=== PATIENT | female | born 1965 | race Hispanic/Latino ===

== ENCOUNTER 2025-01-16 21:23 | Emergency (ER) | payer BC ==
[~2025-01-16] VITALS: Ht 154.9 cm; Wt 73.9 kg
--- NOTE | 2025-01-16 21:52 | ERN ---
ED Note History of Present Illness Stated Complaint: C/O ABD PAIN WITH BLACK STOOL Chief Complaint: Tarry Stool Time Seen by MD: 21:41 Dictation: This is a 59-year-old female who presented to the emergency room with complaints of black tarry stools associated with the abdominal pain. He also reports that she has been feeling extremely weak. The abdominal pain started a couple of days ago and she noticed the black tarry stools today. She had a similar episode of melena 12 or 13 years ago at which time eventually developed hematemesis and she was admitted to [facility] at the time. She was told she had a peptic ulcer disease. Her father from perforated peptic ulcer disease Temperature 98.3 pulse 53 respirations 20 blood pressure 164/84 with a pulse oximetry of 99% on room air She denied any NSAID use or OTC Goody powder RBC powder. She also denied any regular alcohol intake. Allergies: Coded Allergies: No Known Drug Allergies (Unverified Allergy, Unknown, 01/16/25) Past Medical History Past Medical History: No Pertinent History Surgical History: Appendectomy, Hysterectomy Family History: Negative History: Not Applicable RN Note Reviewed/Agreed w/PFSH: Yes Review of System Dictation Constitutional: Negative for fever,chills, and weight loss Eyes: Negative for injury, pain,redness, and discharge ENT: Negative for injury,pain or swelling Cardiovascular: Negative for chest pain, palpitations, and edema Respiratory: Negative for shortness of breath, cough, and wheezing, Abdomen/GI: Positive for abdominal pain and black tarry stools, nausea, vomiting, denied diarrhea, and constipation Back: Negative for injury and pain : Negative for injury, bleeding and discharge MS/Extremity: Negative for injury and deformity Skin: Negative for rash, and discoloration Neuro: Negative for headache, weakness, numbness, tingling, and seizure Psych: Negative for suicide ideation, homicidal ideation, and hallucinations Initial Vital Sign VS Vital Signs Date Time Temp Pulse Resp B/P (MAP) Pulse Ox O2 Delivery O2 Flow Rate FiO2 01/16/25 21:26 98.2 53 20 164/84 99 Room Air 01/16/25 22:24 0 21 Physical Exam Dictation General: awake, alert, NAD overweight female Head/Face: Normocephalic, atraumatic Eyes: PERRL, EOMI, vision at baseline ENT: oral cavity clear, TMs clear, no signs of infection Neck: Trachea midline, supple, no nuchal rigidity Cardiovascular: RRR, normal S1/S2, No MRGs, no JVD Respiratory: CTAB, no respiratory distress, No rales or wheezes Abdomen: Soft, non-tender, non-distended, normal bowel sounds, no guarding or rebound. Skin: Warm, dry, normal turgor, no rash MS/Extremity: Pulses equal, no cyanosis, neurovascular intact, FROM Neuro: COAx4, GCS 15, strength 5/5, CN 2-12 intact, normal cerebellar exam, normal gait, Psych: Normal behavior, mood, and affect normal Extremities-trace edema without any palpable cords, Homans sign is negative Results (Laboratory/Radiology) Laboratory/Radiology Laboratory Tests Test 01/16/25 22:10 01/16/25 22:18 Urine Color COLORLESS (YELLOW) Urine Appearance CLEAR (CLEAR) Urine pH 7.0 (5.0-8.0) Urine Specific [place] 1.004 (1.001-1.031) Urine Protein NEGATIVE mg/dL (NEGATIVE) Urine Glucose (UA) NEGATIVE mg/dL (NEGATIVE) Urine Ketones NEGATIVE mg/dL (NEGATIVE) Urine Occult Blood NEGATIVE (NEGATIVE) Urine Nitrate NEGATIVE (NEGATIVE) Urine Bilirubin NEGATIVE mg/dL (NEGATIVE) Urine Urobilinogen 0.2 mg/dL (0.2-1.0) Urine Leukocyte Esterase NEGATIVE [place]/uL Stool Occult Blood NEGATIVE (NEGATIVE) White Blood Count 5.9 K/uL (4.8-10.8) Red Blood Count 4.97 MIL/uL (4.00-5.50) Hemoglobin 13.9 g/dL (12.0-16.0) Hematocrit 42.1 % (36-48) Mean Corpuscular Volume 84.7 fL (79-99) Mean Corpuscular Hemoglobin 28.0 pg (27.0-33.0) Mean Corpuscular Hemoglobin Concent 33.0 g/dL (32.0-36.0) Red Cell Distribution Width 14.2 % (11.0-15.5) Platelet Count 259 K/uL (130-400) Mean Platelet Volume 9.9 fL (7.5-10.5) Immature Granulocyte % (Auto) 0.3 % (0-1) Neutrophils (%) (Auto) 46.0 % (40.0-77.0) Lymphocytes (%) (Auto) 40.1 % (21.0-51.0) Monocytes (%) (Auto) 8.2 % (3.0-13.0) Eosinophils (%) (Auto) 4.9 % (0.0-8.0) Basophils (%) (Auto) 0.5 % (0.0-5.0) Neutrophils # (Auto) 2.7 K/uL (1.8-7.7) Lymphocytes # (Auto) 2.4 K/uL (1.0-4.8) Monocytes # (Auto) 0.5 K/uL (0.1-1.0) Eosinophils # (Auto) 0.29 K/uL (0.00-0.70) Basophils # (Auto) 0.03 K/uL (0.00-0.20) Absolute Immature Granulocyte (auto 0.02 K/uL (0-1) Nucleated Red Blood Cells 0.0 % (0.0-0.19) Sodium Level 137 mmol/L (136-145) Potassium Level 3.9 mmol/L (3.5-5.1) Chloride Level 103 mmol/L (101-111) Carbon Dioxide Level 28 mmol/L (21-32) Blood Urea Nitrogen 13 mg/dL (7-18) Creatinine 0.8 mg/dL (0.5-1.0) Glomerular Filtration Rate Calc 84 mL/min (>90) Random Glucose 100 mg/dL (70-105) Total Calcium 8.8 mg/dL (8.5-10.1) Labs Reviewed?: Yes ED Course ED Course Orders Procedure Category Date Status Time Cbc With Differential LAB 01/16/25 Complete 21:49 Type And Screen BBK 01/16/25 In Process 21:49 Urinalysis Profile LAB 01/16/25 Complete 21:49 Occult Blood Stool LAB 01/16/25 Complete Single Only 21:49 12 Lead Ekg Tracing- EKG 01/16/25 Logged Technical 21:49 0.9%Nacl 1000ml (Ns PHA 01/16/25 In Process 1000ml) 22:00 Morphine 4mg Syg PHA 01/16/25 Complete (Morphine 4mg Syg) 22:00 Ondansetron 4mg Inj PHA 01/16/25 Complete (Zofran 4mg Inj) 22:00 Pantoprazole 40mg Inj PHA 01/16/25 Complete (Protonix 40mg Inj 22:00 Basic Metabolic Panel LAB 01/16/25 Complete 21:49 Current Medications Medications (Trade) Dose Ordered Sig/Pati Route PRN Reason Start Time Stop Time Status Last Admin Dose Admin Morphine Sulfate (morPHINE 4MG SYG) 4 mg ONCE ONCE IVP 01/16/25 22:00 01/16/25 22:01 DC 01/16/25 22:34 Ondansetron HCl (zoFRAN 4MG INJ) 4 mg ONCE ONCE IVP 01/16/25 22:00 01/16/25 22:01 DC 01/16/25 22:34 Pantoprazole Sodium (PROTonix 40MG INJ) 80 mg ONCE ONCE IVP 01/16/25 22:00 01/16/25 22:01 DC 01/16/25 22:34 Sodium Chloride 1,000 ml @ 125 mls/hr ONCE ONCE IV 01/16/25 22:00 01/17/25 05:59 01/16/25 22:34 Vital Signs Date Time Temp Pulse Resp B/P (MAP) Pulse Ox O2 Delivery O2 Flow Rate FiO2 01/16/25 22:24 97.9 59 18 144/78 98 Room Air* 0 21 01/16/25 21:26 98.2 53 20 164/84 99 Room Air We will perform diagnostic labs, and administer medications according to the patient's complaint. Once the results are available, will review and personally interpreted the labs to rule out any acute life-threatening emergency the trach require immediate intervention and treatment. I will then re-evaluate the patient after treatment and diagnostic exams have return to determine whether the patient requires any further testing, can safely be discharged home or need further admission to hospital for additional treatment and evaluation. Labs reviewed CBC is with a normal limits with a hemoglobin of 13.9. Urinalysis is unremarkable stool occult is negative. BNP 7 is also with a normal limits. I updated the patient on all the normal labs with stable hemoglobin and negative stool occult and the crampy abdominal pain lightly is related to constipation and at this time it does not appear to be an active GI bleed. She verbalized full understanding and she will follow up with her primary care physician. She stated that she already has laxatives at home Medical Decision Making MDM Differential diagnosis: GI bleed, constipation, colitis, gastritis, peptic ulcer disease Rationale: Tests considered and ordered secondary to shared decision making include: Previous outside records reviewed: Old ER visits. Risk of complication and/or morbidity or mortality of patient management: None Medications-Per medication reconciliation Need for hospitalization: Patient does not meet criteria for hospitalization. Need for emergency major/minor surgery: No There are no social concerns with this patient. Prescription drug management Prescriptions will include symptomatic care Patient's prior external medical records from other ER visits were reviewed by me as indicated. Prior testing and results from previous visits were reviewed. Prior tests were taken into account with medical decision making and resource u tilization, independent historian/historians were used to obtain complete medical history. I independently interpreted the test that were performed, results were reviewed by me and considered findings on radiology if ordered. Medical management and examination interpretation discussions were had by me with other qualified healthcare professionals as indicated for the patient's ca re. Problem List Problem List: (1) Abdominal pain (2) Constipation DX & DISP Disposition: Discharge Departure Impression: Primary Impression: Abdominal pain Additional Impression: Constipation Condition: Stable Additional Instructions: Patient and the caregiver have been informed of all the diagnostic tests and the imaging conducted during the today's visit to the emergency room and has verbalized understanding of the results I have personally reviewed and interpreted all diagnostic exams performed here in the ER today as well as the vital signs documented by the nursing staff. The patient is now being discharged to home and should follow up with the primary care physician or the specialist as directed by the ER staff. Follow-up with primary care provider in 1 to 2 days. Take medications as directed here in the emergency room. Okay to continue home medications unless otherwise discussed during your visit in the emergency room today. Return to your nearest emergency room if symptoms worsen or if there is no improvement. Call 911 if you need immediate assistance. Take Tylenol or Motrin [id number] as needed and if no contraindications are present. Increase oral hydration. A wound culture or urine culture was ordered here in the emergency room department please follow-up with primary care provider and advise them to get repeat ports from our facility. If you had any Jose G wrap/splints that were applied here, please do not remove them until you see your primary care or specialty. If abdominal pain persists patient to return the ER and additional imaging studies we will be pursued Referrals: SELF,REFERRAL (PCP) THOMAS MERCADO MD Jan 16, 2025 21:52
[2025-01-16 22:20] LABS: APPEARANCE,URINE CLEAR (CLEAR); GLUCOSE, URINE (UA) NEGATIVE (NEGATIVE); LEUKOCYTE ESTERASE ,URINE NEGATIVE Leu/uL (NEGATIVE); NITRATE,URINE NEGATIVE (NEGATIVE); OCCULT BLOOD,URINE NEGATIVE (NEGATIVE)
[2025-01-16 22:23] LABS: ADD UA MICROSCOPIC NO
[2025-01-16 22:32] LABS: IMMATURE GRANULOCYTE ABSOLUTE 0.02 K/uL (0-1); NUCLEATED RED BLOOD CELLS 0.0 % (0.0-0.19); PLATELET COUNT (AUTO) 259 K/uL (130-400); RED BLOOD CELL COUNT(AUTO) 4.97 MIL/uL (4.00-5.50); RED CELL DISTRIBUTION WIDTH 14.2 % (11.0-15.5); WHITE BLOOD COUNT (AUTO) 5.9 K/uL (4.8-10.8)
[2025-01-16] MEDS: 0.9%NACL 1000ML 1,000 ML IV ONE (22:34)
[2025-01-16 22:40] LABS: CREATININE 0.8 mg/dL (0.5-1.0); GLOMERULAR FILTR. RATE CALC 84.0 mL/min (>90); GLUCOSE,RANDOM 100.0 mg/dL (70-105); SODIUM SERUM 137.0 mmol/L (136-145); UREA NITROGEN, BLOOD 13.0 mg/dL (7-18)
[2025-01-16 23:11] VITALS: BP 138/73; PULSE 63; RESP 18; TEMP 97.9; O2SAT 98
--- NOTE | 2025-01-17 06:35 | EKG ---
[facility] Test Date: 2025-01-16 Test Time: 22:13:36 Pat Name: ANGELINA SANTANA Department: [facility] Room: Gender: F Hospice Fellow: [id number] : 1965 Requested By: THOMAS MERCADO Order Number: [id number] Reading MD: Lynn Tovar Measurements Intervals [place] Rate: 57 P: 18 VT: 161 QRS: 3 QRSD: 98 T: 43 QT: 446 QTc: 434 Interpretive Statements Sinus rhythm Nonspecific T abnormalities, anterior leads No previous ECG available for comparison Electronically Signed On 01-17-2025 11:33:08 CDT by Lynn Tovar Please click the below link to view image of tracing.
== END 2025-01-16 23:32 | disposition home or self-care (01) ==
LOC: EDH 21:23
DX: R10.9 Unspecified abdominal pain (principal); K59.00 Constipation, unspecified; Z90.49 Acquired absence of other specified parts of digestive tract; Z90.710 Acquired absence of both cervix and uterus
CPT/HCPCS: 99284; 96374; 96375; 96361; 82270; 80048; 85025; 86850; 86900; 86901; 81003; 36415; 93005; J7030; J2405; J2270; J2470